=== PATIENT | female | born 1965 | race Hispanic/Latino ===

== ENCOUNTER 2023-02-10 09:42 | Emergency (ER) | payer SELFPAY ==
[~2023-02-10] VITALS: Ht 154.9 cm; Wt 75.3 kg
[2023-02-10 09:44] VITALS: BP 152/95
== END 2023-02-10 11:40 | disposition home or self-care (01) ==
LOC: M ED 09:42
DX: Z48.02 Encounter for removal of sutures (principal); Z88.0 Allergy status to penicillin

== ENCOUNTER 2023-02-12 10:46 | Observation (INO) | payer MEDICAID, SELFPAY ==
[~2023-02-12] VITALS: Ht 154.9 cm; Wt 73.6 kg
[2023-02-12] MEDS ORDERED: ACET1TAB37 PO (10:55)
[2023-02-12] MEDS ORDERED: LABETALOL 100MG/20ML VIAL IV STA ×2 (12:51→14:41)
[2023-02-12] MEDS ORDERED: ONDANSETRON 4MG 2ML VIAL IV ONE (12:55)
[2023-02-12 13:27] LABS: BASO % 0.5 % (0.0-1.0); EOS % 0.3 % (0.0-3.0); HEMATOCRIT 37.5 % (36.0-47.0); HEMOGLOBIN 12.5 g/dl (12.0-15.5); LYMPH # 0.9 10^3/uL (1.5-5.0); LYMPH % 24.4 % (24.0-44.0); MEAN CORPUSCULAR HEMOGLOBIN 30.3 pg (27.0-33.0); MEAN CORPUSCULAR HGB CONC 33.3 g/dl (32.0-36.5); MONO # 0.3 10^3/uL (0.0-0.8); MONO % 7.6 % (2.0-8.0); NEUTROPHILS # 2.6 10^3/uL (1.5-8.5); NEUTROPHILS % 66.9 % (36.0-66.0); PLATELET COUNT, AUTOMATED 242 10^3/uL (150-450); RED BLOOD COUNT 4.12 10^6/uL (4.00-5.40); WHITE BLOOD COUNT 3.8 10^3/uL (4.0-10.0)
[2023-02-12 13:36] LABS: INR 0.88; PROTHROMBIN TIME 12.1 SECONDS (12.5-14.5)
[2023-02-12 13:37] LABS: PARTIAL THROMBOPLASTIN TIME 28.2 SECONDS (24.8-34.2)
[2023-02-12 14:06] LABS: ALBUMIN 3.6 G/DL (3.2-5.2); ALKALINE PHOSPHATASE 88 U/L (46-116); ALT/SGPT 51 U/L (7.0-40); AST/SGOT 53 U/L (<34); BILIRUBIN,DIRECT 0.3 MG/DL (<0.4); BILIRUBIN,TOTAL 0.7 MG/DL (0.3-1.2); BLOOD UREA NITROGEN 11 MG/DL (9-23); CALCIUM LEVEL 8.7 MG/DL (8.5-10.1); CARBON DIOXIDE LEVEL 24 MMOL/L (20-31); CHLORIDE LEVEL 104 MMOL/L (98-107); CK-MB VALUE MASS < 1.0 NG/ML (<3.6); CPK CREATINE PHOSPHOKINASE 37 U/L (34-145); CREATININE FOR GFR 0.54 MG/DL (0.55-1.30); GLOMERULAR FILTRATION RATE > 60.0 (>51); GLUCOSE, FASTING 101 MG/DL (60-100); SODIUM LEVEL 135 MMOL/L (136-145)
[2023-02-12 14:08] LABS: THYROID STIMULATING HORMONE 1.549 uIU/ML (0.55-4.78)
[2023-02-12 14:09] LABS: FREE T4 0.99 NG/DL (0.89-1.76)
[2023-02-12] MEDS ORDERED: ISOVUE-370 76% 100ML VIAL As Ordered ONE (14:20)
[2023-02-12] MEDS ORDERED: LABETALOL 100MG/20ML VIAL IV PRN (15:55)
[2023-02-12 16:54] LABS: RSV AMPLIFICATION NEGATIVE (NEGATIVE)
[2023-02-12] MEDS ORDERED: HOME MED LIST COMPLETE! XX SCH (16:55)
[2023-02-12] MEDS ORDERED: MECLIZINE 25 MG TABLET PO PRN (17:00)
[2023-02-12] MEDS ORDERED: MELOXICAM (MOBIC) 7.5 MG TAB PO PRN (17:00)
[2023-02-12] MEDS: amLODIPine 5 MG TAB PO SCH (17:26)
[2023-02-12] MEDS ORDERED: PROHANCE 279.3MG/ML 15ML VIAL As Ordered ONE (18:26)
[2023-02-12 19:22] LABS: HEPATITIS C VIRUS ABY INDEX 0.1 INDEX (<0.8)
[2023-02-12] MEDS ORDERED: ATORVASTATIN 20 MG TAB PO SCH (21:00)
[2023-02-12 22:34] VITALS: BP 164/81; TEMP 97.7; O2SAT 100
[2023-02-12 23:59] VITALS: BP 132/81; TEMP 98.3; O2SAT 100
[2023-02-13] MEDS ORDERED: KETOROLAC 30 MG/ML 1ML VIAL IV ONE (00:10)
[2023-02-13 04:08] VITALS: BP 116/75; TEMP 97.5; O2SAT 99
[2023-02-13 04:37] LABS: HEMATOCRIT 37.5 % (36.0-47.0); HEMOGLOBIN 12.4 g/dl (12.0-15.5); MEAN CORPUSCULAR HEMOGLOBIN 30.4 pg (27.0-33.0); MEAN CORPUSCULAR HGB CONC 33.1 g/dl (32.0-36.5); MEAN CORPUSCULAR VOLUME 91.9 fl (80.0-96.0); PLATELET COUNT, AUTOMATED 237 10^3/uL (150-450); RED BLOOD COUNT 4.08 10^6/uL (4.00-5.40); WHITE BLOOD COUNT 3.5 10^3/uL (4.0-10.0)
[2023-02-13 05:01] LABS: BLOOD UREA NITROGEN 16 MG/DL (9-23); CALCIUM LEVEL 8.8 MG/DL (8.5-10.1); CARBON DIOXIDE LEVEL 26 MMOL/L (20-31); CHLORIDE LEVEL 104 MMOL/L (98-107); CORTISOL AM 5.8 UG/DL (4.3-22.4); CREATININE FOR GFR 0.92 MG/DL (0.55-1.30); GLOMERULAR FILTRATION RATE > 60.0 (>51); GLUCOSE, FASTING 92 MG/DL (60-100); POTASSIUM SERUM 4.1 MMOL/L (3.5-5.1); SODIUM LEVEL 137 MMOL/L (136-145)
[2023-02-13 08:00] VITALS: BP 121/81; TEMP 98.2; O2SAT 97
[2023-02-13 08:27] VITALS: BP 121/81
[2023-02-13] MEDS: amLODIPine 5 MG TAB PO SCH (08:27)
[2023-02-13] MEDS ORDERED: LISI20TA33 PO (08:41)
[2023-02-13] MEDS ORDERED: MECL-86 PO (08:41)
[2023-02-13] MEDS ORDERED: AMLO1TAB24 PO (08:41)
[2023-02-13] MEDS ORDERED: ATOR1TAB21 PO (08:45)
[2023-02-13] MEDS ORDERED: ASPI81CH8 PO (08:45)
[2023-02-13] MEDS ORDERED: ENOXAPARIN 40MG/0.4ML SYRINGE (J1650 PER 10MG) SC SCH (09:00)
[2023-02-13] MEDS ORDERED: ASPIRIN 81MG CHEW TABLET PO SCH (09:00)
[2023-02-13 10:07] VITALS: BP 146/92
[2023-02-13] MEDS ORDERED: ONDANSETRON 4MG 2ML VIAL IV ONE (10:25)
[2023-02-13 10:29] VITALS: BP 127/80
[2023-02-14 12:09] LABS: % CD8 Pos Lymph 64.7 % (12.0-35.5); %CD4 Pos Lymphs 11.1 % (30.8-58.5); ABS Lymphs 1.2 x10E3/uL (0.7-3.1); ABS Monocytes 0.4 x10E3/uL (0.1-0.9); ABS Neutophils 1.7 x10E3/uL (1.4-7.0); Abs CD4 Helper 133 /uL (359-1519); Abs CD8 Suppres 776 /uL (109-897); CD4/CD8 Ratio 0.17 (0.92-3.72); Eosinophils 1 % (Not Estab.); HCT 37.5 % (34.0-46.6); HGB 12.7 g/dL (11.1-15.9); Immature Grans 0 % (Not Estab.); Lymphocytes 37 % (Not Estab.); MCH 30.8 pg (26.6-33.0); MCHC 33.9 g/dL (31.5-35.7); MCV 91 fL (79-97); Monocytes 11 % (Not Estab.); Neutrophils 50 % (Not Estab.); Platelets 248 x10E3/uL (150-450); RBC 4.13 x10E6/uL (3.77-5.28); RDW 14.9 % (11.7-15.4); WBC 3.3 x10E3/uL (3.4-10.8)
[2023-02-15 01:06] LABS: HBV HBV DNA not detected IU/mL (.); HBVCOREDIFF1 Negative (Negative); HBVCOREDIFF2 Negative (Negative); HEPATITIS BE ANTIBODY Negative (Negative); HEPATITIS BE ANTIGEN Negative (Negative); HEPATITIS C QUANTITATION HCV Not Detected IU/mL (.); HIV-1 RNA PCR QUANT 2 LC550285 132000 copies/mL (.); HIV-1 RNA PCR QUANT 3 LC550285 5.121 (.)
== END 2023-02-13 11:55 | disposition home or self-care (01) ==
LOC: EDBD 10:46 → M ED 10:46 → M ED INP 15:51 → M ICU 22:16
PROVIDERS: ADMIT Internal Medicine; ATTEND Internal Medicine
DX: I16.0 Hypertensive urgency (principal); B20 Human immunodeficiency virus [HIV] disease; I10 Essential (primary) hypertension; D72.810 Lymphocytopenia; I65.09 Occlusion and stenosis of unspecified vertebral artery; Z79.82 Long term (current) use of aspirin; Z79.899 Other long term (current) drug therapy; Z88.0 Allergy status to penicillin
CPT/HCPCS: 36415; 70450; 70496; 70498; 70553; 71045; 80048; 80076; 82533; 82550; 82553; 84439; 84443; 85025; 85027; 85610; 85730; 86360; 86704; 86705; 86707; 86780; 86803; 87350; 87517; 87522; 87536; 87631; 93005; 93041; 94760; 96374; 96375; 96376; 97116; 97161; 99285; A9576; J1885; J2405; Q9967

== ENCOUNTER → 2023-03-04 | Outpatient (CLI) | payer MEDICAID ==
[~2023-03-04] MED LIST: ACET1TAB37 PO; AMLO1TAB24 PO; ASPI81CH8 PO; ATOR1TAB21 PO; LISI20TA33 PO; MECL-86 PO
[2023-03-04 16:28] LABS: HEPATITIS B SURFACE ANTIBODY POSITIVE (POSITIVE)
[2023-03-04 16:39] LABS: HEPATITIS B SURFACE ANTIGEN NEGATIVE (NEGATIVE)
[2023-03-04 16:40] LABS: ALBUMIN 3.8 G/DL (3.2-5.2); ALKALINE PHOSPHATASE 84 U/L (46-116); AST/SGOT 42 U/L (<34); BILIRUBIN,TOTAL 0.6 MG/DL (0.3-1.2); BLOOD UREA NITROGEN 15 MG/DL (9-23); CALCIUM LEVEL 8.6 MG/DL (8.5-10.1); CARBON DIOXIDE LEVEL 27 MMOL/L (20-31); CHLORIDE LEVEL 107 MMOL/L (98-107); CREATININE FOR GFR 0.64 MG/DL (0.55-1.30); GLOMERULAR FILTRATION RATE > 60.0 (>51); GLUCOSE, FASTING 84 MG/DL (60-100); POTASSIUM SERUM 4.3 MMOL/L (3.5-5.1); SODIUM LEVEL 140 MMOL/L (136-145); TOTAL PROTEIN 7.9 G/DL (5.7-8.2)
[2023-03-04 16:54] LABS: ALT/SGPT 54 U/L (7.0-40)
[2023-03-06 06:09] LABS: HEPATITIS A IgG TOTAL Negative (Negative)
== END ==
LOC: M PLALAB 12:49
PROVIDERS: ATTEND Internal Medicine Infectious Disease
DX: B20 Human immunodeficiency virus [HIV] disease (principal)

== ENCOUNTER → 2023-06-16 | Outpatient (CLI) | payer OTHER | LOC: M WHC 13:36 | PROVIDERS: ATTEND Nurse Practitioner Family | DX: Z12.31 Encounter for screening mammogram for malignant neoplasm of breast (principal) ==

== ENCOUNTER → 2023-06-16 | Outpatient (REF) | payer OTHER | LOC: M SFHCWAGY 17:58 | PROVIDERS: ATTEND Nurse Practitioner Family | DX: Z12.4 Encounter for screening for malignant neoplasm of cervix (principal) ==

== ENCOUNTER → 2023-07-01 | Outpatient (CLI) | payer OTHER ==
[2023-07-01 14:36] LABS: ALBUMIN 3.8 G/DL (3.2-5.2); ALKALINE PHOSPHATASE 81 U/L (46-116); ALT/SGPT 64 U/L (7.0-40); AST/SGOT 52 U/L (<34); BILIRUBIN,TOTAL 0.6 MG/DL (0.3-1.2); BLOOD UREA NITROGEN 20 MG/DL (9-23); CALCIUM LEVEL 9.2 MG/DL (8.5-10.1); CARBON DIOXIDE LEVEL 28 MMOL/L (20-31); CHLORIDE LEVEL 104 MMOL/L (98-107); CREATININE FOR GFR 0.82 MG/DL (0.55-1.30); GLOMERULAR FILTRATION RATE > 60.0 (>51); GLUCOSE, FASTING 89 MG/DL (60-100); POTASSIUM SERUM 4.7 MMOL/L (3.5-5.1); SODIUM LEVEL 139 MMOL/L (136-145)
[2023-07-02 17:08] LABS: % CD8 Pos Lymph 58.3 % (12.0-35.5); ABS Eosinophils 0.1 x10E3/uL (0.0-0.4); ABS Lymphs 1.9 x10E3/uL (0.7-3.1); ABS Monocytes 0.5 x10E3/uL (0.1-0.9); ABS Neutophils 2.5 x10E3/uL (1.4-7.0); Abs CD4 Helper 228 /uL (359-1519); Abs CD8 Suppres 1108 /uL (109-897); CD4/CD8 Ratio 0.21 (0.92-3.72); Eosinophils 2 % (Not Estab.); HCT 40.5 % (34.0-46.6); HGB 13.7 g/dL (11.1-15.9); HIV-1 RNA PCR QUANT 2 LC550285 30 copies/mL (.); HIV-1 RNA PCR QUANT 3 LC550285 1.477 (.); Immature Grans 1 % (Not Estab.); Lymphocytes 38 % (Not Estab.); MCHC 33.8 g/dL (31.5-35.7); MCV 95 fL (79-97); Monocytes 10 % (Not Estab.); Neutrophils 48 % (Not Estab.); Platelets 259 x10E3/uL (150-450); RBC 4.28 x10E6/uL (3.77-5.28); RDW 13.5 % (11.7-15.4); WBC 4.9 x10E3/uL (3.4-10.8)
== END ==
LOC: M PLALAB 11:20
PROVIDERS: ATTEND Internal Medicine Infectious Disease
DX: B20 Human immunodeficiency virus [HIV] disease (principal)

== ENCOUNTER → 2023-08-13 | Day surgery (SDC) | payer OTHER ==
[~2023-08-13] VITALS: Ht 157.5 cm; Wt 75.1 kg
[~2023-08-13] MED LIST changes: +ASPI81CH48 PO; +DESC1TAB PO; +LIDOCAINE 2% 100MG/5ML SDV (FOR ANES.) As Ordered ONE; +NS 1,000 ML IV ONE; +TIVI1TAB PO; +propofoL 200 MG/20 ML VIAL As Ordered ONE
[2023-08-13 11:53] VITALS: TEMP 96.8
[2023-08-13 12:18] VITALS: BP 159/96; O2SAT 100
== END | disposition home or self-care (01) ==
LOC: M OPP 09:33
PROVIDERS: ATTEND Surgery
DX: Z86.010 Personal history of colon polyps (principal); K64.0 First degree hemorrhoids; D12.5 Benign neoplasm of sigmoid colon; B20 Human immunodeficiency virus [HIV] disease; Z79.02 Long term (current) use of antithrombotics/antiplatelets; Z79.1 Long term (current) use of non-steroidal anti-inflammatories (NSAID); Z79.82 Long term (current) use of aspirin; Z79.84 Long term (current) use of oral hypoglycemic drugs; Z79.899 Other long term (current) drug therapy; Z88.0 Allergy status to penicillin

== ENCOUNTER → 2023-10-28 | Outpatient (CLI) | payer OTHER ==
[~2023-10-28] MED LIST changes: -LIDOCAINE 2% 100MG/5ML SDV (FOR ANES.) As Ordered ONE; -NS 1,000 ML IV ONE; -propofoL 200 MG/20 ML VIAL As Ordered ONE
[2023-10-28 13:46] LABS: ALBUMIN 3.6 G/DL (3.2-5.2); ALKALINE PHOSPHATASE 85 U/L (46-116); ALT/SGPT 37 U/L (7.0-40); AST/SGOT 35 U/L (<34); BILIRUBIN,TOTAL 0.5 MG/DL (0.3-1.2); BLOOD UREA NITROGEN 13 MG/DL (9-23); CALCIUM LEVEL 9.3 MG/DL (8.5-10.1); CARBON DIOXIDE LEVEL 28 MMOL/L (20-31); CHLORIDE LEVEL 108 MMOL/L (98-107); CREATININE FOR GFR 0.77 MG/DL (0.55-1.30); GLOMERULAR FILTRATION RATE > 60.0 (>51); GLUCOSE, FASTING 89 MG/DL (60-100); POTASSIUM SERUM 4.5 MMOL/L (3.5-5.1); SODIUM LEVEL 140 MMOL/L (136-145); TOTAL PROTEIN 7.5 G/DL (5.7-8.2)
[2023-10-29 16:13] LABS: % CD8 Pos Lymph 52.6 % (12.0-35.5); %CD4 Pos Lymphs 13.1 % (30.8-58.5); ABS Basophils 0.1 x10E3/uL (0.0-0.2); ABS Eosinophils 0.2 x10E3/uL (0.0-0.4); ABS Lymphs 1.9 x10E3/uL (0.7-3.1); ABS Monocytes 0.5 x10E3/uL (0.1-0.9); ABS Neutophils 2.8 x10E3/uL (1.4-7.0); Abs CD4 Helper 249 /uL (359-1519); Abs CD8 Suppres 999 /uL (109-897); CD4/CD8 Ratio 0.25 (0.92-3.72); Eosinophils 4 % (Not Estab.); HCT 39.6 % (34.0-46.6); HGB 13.6 g/dL (11.1-15.9); HIV-1 RNA PCR QUANT 2 LC550285 20 copies/mL (.); HIV-1 RNA PCR QUANT 3 LC550285 1.301 (.); Immature Grans 0 % (Not Estab.); Lymphocytes 35 % (Not Estab.); MCH 31.9 pg (26.6-33.0); MCHC 34.3 g/dL (31.5-35.7); MCV 93 fL (79-97); Monocytes 8 % (Not Estab.); Neutrophils 52 % (Not Estab.); Platelets 273 x10E3/uL (150-450); RBC 4.27 x10E6/uL (3.77-5.28); RDW 13.3 % (11.7-15.4); WBC 5.5 x10E3/uL (3.4-10.8)
== END ==
LOC: M PLALAB 10:38
PROVIDERS: ATTEND Internal Medicine Infectious Disease
DX: B20 Human immunodeficiency virus [HIV] disease (principal)

== ENCOUNTER → 2024-04-14 | Outpatient (CLI) | payer OTHER ==
[2024-04-14 19:15] LABS: HEMATOCRIT 39.8 % (36.0-47.0); HEMOGLOBIN 13.4 g/dl (12.0-15.5); MEAN CORPUSCULAR HEMOGLOBIN 31.9 pg (27.0-33.0); MEAN CORPUSCULAR HGB CONC 33.7 g/dl (32.0-36.5); MEAN CORPUSCULAR VOLUME 94.8 fl (80.0-96.0); PLATELET COUNT, AUTOMATED 275 10^3/uL (150-450); WHITE BLOOD COUNT 6.8 10^3/uL (4.0-10.0)
[2024-04-14 19:39] LABS: VITAMIN B12 LEVEL 477 PG/ML (211-911)
[2024-04-14 19:41] LABS: THYROID STIMULATING HORMONE 2.403 uIU/ML (0.55-4.78)
[2024-04-16 10:53] LABS: ALKALINE PHOSPHATASE 93 U/L (46-116); ALT/SGPT 23 U/L (7.0-40); AST/SGOT 30 U/L (<34); BILIRUBIN,TOTAL 0.6 MG/DL (0.3-1.2); BLOOD UREA NITROGEN 16 MG/DL (9-23); CALCIUM LEVEL 9.3 MG/DL (8.5-10.1); CARBON DIOXIDE LEVEL 26 MMOL/L (20-31); CHLORIDE LEVEL 109 MMOL/L (98-107); CHOLESTEROL LEVEL 146 MG/DL (<200); CHOLESTEROL RISK RATIO 3.45 (<5); CREATININE FOR GFR 0.79 MG/DL (0.55-1.30); GLOMERULAR FILTRATION RATE > 60.0 (>51); GLUCOSE, FASTING 85 MG/DL (60-100); HDL CHOLESTEROL 42.2 MG/DL (>40); NON-HDL-C 103.8 MG/DL; POTASSIUM SERUM 4.8 MMOL/L (3.5-5.1); SODIUM LEVEL 141 MMOL/L (136-145); TOTAL PROTEIN 7.8 G/DL (5.7-8.2); TRIGLYCERIDES LEVEL 114 MG/DL (<150)
[2024-04-16 11:10] LABS: HEMOGLOBIN A1c 5.3 % (4.0-6.0)
== END ==
LOC: M PLALAB 16:19
PROVIDERS: ATTEND Family Medicine
DX: G47.19 Other hypersomnia (principal); E66.01 Morbid (severe) obesity due to excess calories

== ENCOUNTER → 2024-05-03 | Outpatient (CLI) | payer OTHER ==
[2024-05-03 18:31] LABS: ALBUMIN 3.8 G/DL (3.2-5.2); ALKALINE PHOSPHATASE 87 U/L (46-116); ALT/SGPT 19 U/L (7.0-40); AST/SGOT 25 U/L (<34); BILIRUBIN,TOTAL 0.5 MG/DL (0.3-1.2); BLOOD UREA NITROGEN 14 MG/DL (9-23); CALCIUM LEVEL 9.5 MG/DL (8.5-10.1); CARBON DIOXIDE LEVEL 27 MMOL/L (20-31); CHLORIDE LEVEL 109 MMOL/L (98-107); CREATININE FOR GFR 0.79 MG/DL (0.55-1.30); GLOMERULAR FILTRATION RATE > 60.0 (>51); GLUCOSE, FASTING 91 MG/DL (60-100); POTASSIUM SERUM 4.3 MMOL/L (3.5-5.1); SODIUM LEVEL 138 MMOL/L (136-145); TOTAL PROTEIN 7.6 G/DL (5.7-8.2)
[2024-05-05 14:12] LABS: % CD4+ LYMPHS 16.9 % (30.8-58.5); ABSOLUTE CD4 HELPER 406 /uL (359-1519); BASOPHILS 1 % (Not Estab.); BASOPHILS ABSOLUTE 0.1 x10E3/uL (0.0-0.2); EOSINOPHILS 2 % (Not Estab.); EOSINOPHILS ABSOLUTE 0.1 x10E3/uL (0.0-0.4); HCT 40.6 % (34.0-46.6); HGB 13.4 g/dL (11.1-15.9); LYMPHOCYTES 40 % (Not Estab.); LYMPHOCYTES ABSOLUTE 2.4 x10E3/uL (0.7-3.1); MCH 31.2 pg (26.6-33.0); MCV 95 fL (79-97); MONOCYTES 5 % (Not Estab.); MONOCYTES ABSOLUTE 0.3 x10E3/uL (0.1-0.9); NEUTROPHILS 52 % (Not Estab.); NEUTROPHILS ABSOLUTE 3.1 x10E3/uL (1.4-7.0); PLT 293 x10E3/uL (150-450); RBC 4.29 x10E6/uL (3.77-5.28)
== END ==
LOC: M PLALAB 14:21
PROVIDERS: ATTEND Internal Medicine Infectious Disease
DX: B20 Human immunodeficiency virus [HIV] disease (principal)

== ENCOUNTER → 2024-05-25 | Outpatient (CLI) | payer OTHER ==
[~2024-05-25] MED LIST changes: +E-Z-GAS II EFFERVESCENT PACKET (SODIUM BICARB./CITRIC ACID/SIMETHICONE) As Ordered ONE; +E-Z-HD 98% w/w 340GM SUSP BTL As Ordered ONE; +E-Z-PAQUE 96% w/w SUSP 176GM BTL As Ordered ONE
== END ==
LOC: M RAD 08:42
PROVIDERS: ATTEND Family Medicine
DX: R13.10 Dysphagia, unspecified (principal)

== ENCOUNTER → 2024-05-26 | Outpatient (CLI) | payer OTHER ==
[~2024-05-26] MED LIST changes: -E-Z-GAS II EFFERVESCENT PACKET (SODIUM BICARB./CITRIC ACID/SIMETHICONE) As Ordered ONE; -E-Z-HD 98% w/w 340GM SUSP BTL As Ordered ONE; -E-Z-PAQUE 96% w/w SUSP 176GM BTL As Ordered ONE
== END ==
LOC: M SLEEP HO 10:33
PROVIDERS: ATTEND Family Medicine
DX: R06.83 Snoring (principal)

== ENCOUNTER → 2024-06-21 | Outpatient (REF) | payer OTHER ==
[2024-06-24 14:42] LABS: HPV APTIMA Not Detected (Not Detected)
== END ==
LOC: M PLALAB 09:27
PROVIDERS: ATTEND Nurse Practitioner Family
DX: Z12.4 Encounter for screening for malignant neoplasm of cervix (principal); N73.9 Female pelvic inflammatory disease, unspecified

== ENCOUNTER → 2024-08-17 | Outpatient (CLI) | payer OTHER ==
[2024-08-17 15:03] LABS: ALBUMIN 3.7 G/DL (3.2-5.2); ALKALINE PHOSPHATASE 86 U/L (35-104); ALT/SGPT 31 U/L (7.0-40); AST/SGOT 32 U/L (<34); BILIRUBIN,TOTAL 0.6 MG/DL (0.3-1.2); BLOOD UREA NITROGEN 13 MG/DL (9-23); CARBON DIOXIDE LEVEL 27 MMOL/L (20-31); CHLORIDE LEVEL 107 MMOL/L (98-107); GLOMERULAR FILTRATION RATE > 60.0 (>51); GLUCOSE, FASTING 94 MG/DL (60-100); POTASSIUM SERUM 4.4 MMOL/L (3.5-5.1); SODIUM LEVEL 141 MMOL/L (136-145)
[2024-08-18 14:09] LABS: % CD4+ LYMPHS 15.2 % (30.8-58.5); ABSOLUTE CD4 HELPER 289 /uL (359-1519); BASOPHILS 1 % (Not Estab.); EOSINOPHILS 1 % (Not Estab.); EOSINOPHILS ABSOLUTE 0.1 x10E3/uL (0.0-0.4); HCT 40.8 % (34.0-46.6); HGB 13.5 g/dL (11.1-15.9); LYMPHOCYTES 30 % (Not Estab.); LYMPHOCYTES ABSOLUTE 1.9 x10E3/uL (0.7-3.1); MCH 30.1 pg (26.6-33.0); MCHC 33.1 g/dL (31.5-35.7); MCV 91 fL (79-97); MONOCYTES 9 % (Not Estab.); MONOCYTES ABSOLUTE 0.5 x10E3/uL (0.1-0.9); NEUTROPHILS 59 % (Not Estab.); NEUTROPHILS ABSOLUTE 3.6 x10E3/uL (1.4-7.0); PLT 312 x10E3/uL (150-450); RBC 4.48 x10E6/uL (3.77-5.28); RDW 12.8 % (11.7-15.4); WBC 6.1 x10E3/uL (3.4-10.8)
== END ==
LOC: M PLALAB 10:52
PROVIDERS: ATTEND Internal Medicine Infectious Disease
DX: B20 Human immunodeficiency virus [HIV] disease (principal)

== ENCOUNTER → 2024-11-12 | Outpatient (CLI) | payer OTHER | LOC: M WHC 10:14 | PROVIDERS: ATTEND Nurse Practitioner Family | DX: Z12.31 Encounter for screening mammogram for malignant neoplasm of breast (principal) ==

== ENCOUNTER → 2024-11-18 | Outpatient (CLI) | payer OTHER | LOC: M EKG 12:30 | PROVIDERS: ATTEND Registered Nurse | DX: R55 Syncope and collapse (principal) ==

== ENCOUNTER → 2025-01-13 | Outpatient (CLI) | payer OTHER ==
[2025-01-13 14:27] LABS: ALBUMIN 3.9 G/DL (3.2-5.2); ALKALINE PHOSPHATASE 97 U/L (35-104); ALT/SGPT 33 U/L (7.0-40); AST/SGOT 29 U/L (<34); BILIRUBIN,TOTAL 0.6 MG/DL (0.3-1.2); BLOOD UREA NITROGEN 17 MG/DL (9-23); CARBON DIOXIDE LEVEL 28 MMOL/L (20-31); CHLORIDE LEVEL 108 MMOL/L (98-107); CREATININE FOR GFR 0.69 MG/DL (0.55-1.30); GLOMERULAR FILTRATION RATE > 90.0 (>51); GLUCOSE, FASTING 89 MG/DL (60-100); POTASSIUM SERUM 4.2 MMOL/L (3.5-5.1); SODIUM LEVEL 143 MMOL/L (136-145); TOTAL PROTEIN 7.7 G/DL (5.7-8.2)
[2025-01-15 23:58] LABS: % CD4 17 % (30-61); %CD8 46 % (12-42); ABSOLUTE CD4 CELLS 320 cells/uL (490-1740); ABSOLUTE CD8 CELLS 840 cells/uL (180-1170); ABSOLUTE LYMPHOCYTES 1842 cells/uL (850-3900); CD4 CD8 RATIO 0.38 (0.86-5.00)
[2025-01-16 06:47] LABS: HIV-1 RNA PCR QUANT 3 1.3 (NOT DETECTED)
== END ==
LOC: M PLALAB 11:26
PROVIDERS: ATTEND Internal Medicine Infectious Disease
DX: B20 Human immunodeficiency virus [HIV] disease (principal)